=== PATIENT | female | born 1950 | race Caucasian/White ===

== ENCOUNTER → 2022-05-19 09:42 | Outpatient (BNVA) | payer MEDICARE, SELFPAY | PROVIDERS: PCP Student in an Organized Health Care Education/Training Program; Visit Provider Internal Medicine Cardiovascular Disease | DX: R07.9 Chest pain, unspecified (principal); E03.9 Hypothyroidism, unspecified; R94.31 Abnormal electrocardiogram [ECG] [EKG]; I44.7 Left bundle-branch block, unspecified; K21.9 Gastro-esophageal reflux disease without esophagitis; G89.29 Other chronic pain; M54.89 Other dorsalgia; M54.2 Cervicalgia | CPT/HCPCS: 93005; 99204 ==

== ENCOUNTER 2022-07-28 13:24 | Outpatient (CLI) | payer MEDICARE, SELFPAY ==
--- NOTE | 2022-07-28 14:30 | USCV_ITS ---
Liseth Cordero Age: 72 Gender: F : 1950 Exam Date: 07/28/2022 13:47 Ordering Phys: Leslie Cat MD ([email or web address]) Technologist: [email or web address] Exam Location: [facility] [place] Indication: CHEST PAIN AND SHORTNESS OF BREATH BP: 138 / 82 HR: 38 Rhythm: Sinus Technical Quality: Adequate MEASUREMENTS (Male / Female) Normal Values 2D ECHO LVOT Diameter 2.0 cm LV Ejection Fraction MOD 2C 54.4 % LV Ejection Fraction 2C AL 54.6 % LA Diameter 2.5 cm LA Width 3.5 cm LA Height 4.4 cm RA Width 3.0 cm RA Height 3.7 cm Aorta at Sinotubular Diameter 2.7 cm IVC Diameter 1.1 cm M-MODE Aortic Annulus Diameter 2.6 cm LA Ao Ratio MM 0.9 MV E Point Septal Separation 0.9 cm DOPPLER AV Peak Velocity 139.0 cm/s LVOT Peak Velocity 84.0 cm/s AV Area Cont Eq vti 2.0 cm squared AV Area Cont Eq pk 1.9 cm squared MV Peak Velocity 88.0 cm/s MV Area PHT 5.0 cm squared Mitral E to A Ratio 0.8 MV E' Velocity 36.5 cm/s Mitral E to MV E' Ratio 7.1 Mitral E to LV E' Lateral Ratio 8.6 Mitral E to LV E' Septal Ratio 6.1 TR Peak Velocity 134.9 cm/s TR Peak Gradient 7.3 mmHg TR Mean Velocity 111.7 cm/s TR Mean Gradient 5.1 mmHg TR Velocity Time Integral 37.7 cm TV Peak E Velocity 44.0 cm/s Right Atrial Pressure 3.0 mmHg Pulmonary Artery Systolic Pressu 10.3 mmHg PV Peak Velocity 80.0 cm/s RV Acceleration Time 0.1 s RV Ejection Time 0.3 s RV AcT/ET 0.4 FINDINGS Left Ventricle Normal left ventricular size, systolic function and wall thickness, with no regional wall motion abnormalities. Left ventricular ejection fraction is estimated at 55 %. Normal diastolic function. Right Ventricle Normal right ventricular size and systolic function. Right Atrium Normal right atrial size. Left Atrium Normal left atrial size. Mitral Valve Structurally normal mitral valve. No mitral valve stenosis. Trace mitral valve regurgitation. Aortic Valve Structurally normal trileaflet aortic valve. No aortic valve stenosis. No aortic valve regurgitation. Tricuspid Valve Structurally normal tricuspid valve. No tricuspid valve stenosis. Trace tricuspid valve regurgitation. Pulmonic Valve Structurally normal pulmonic valve. No pulmonary valve stenosis. No pulmonary valve regurgitation. Pericardium No pericardial effusion. Aorta Normal size aortic root and proximal ascending aorta. IVC Normal IVC dimension with >50% respiratory change of the inferior vena cava. CONCLUSIONS 1. Normal left ventricular size, systolic function and wall thickness, with no regional wall motion abnormalities. Left ventricular ejection fraction is estimated at 55 %. Normal diastolic function. 2. Trace mitral and tricuspid valve regurgitation. 3. When compared to study dated 02/12/2016, there may not have been any significant change. Leslie Cat MD (Electronically Signed) Final Date: 01 August 2022 19:19 S
== END 2022-07-28 13:25 | disposition home or self-care (01) ==
PROVIDERS: PCP Student in an Organized Health Care Education/Training Program; Visit Provider Internal Medicine Cardiovascular Disease
DX: R07.9 Chest pain, unspecified (principal); R06.02 Shortness of breath; I08.1 Rheumatic disorders of both mitral and tricuspid valves
CPT/HCPCS: 93306

== ENCOUNTER → 2022-12-07 09:46 | Outpatient (BNVA) | payer MEDICARE, SELFPAY | PROVIDERS: PCP Registered Nurse; Visit Provider Specialist | DX: R07.89 Other chest pain (principal); K21.9 Gastro-esophageal reflux disease without esophagitis | CPT/HCPCS: 99213 ==